=== PATIENT | female | born 1975 | race Hispanic/Latino ===

== ENCOUNTER 2023-04-29 21:16 | Inpatient (IN) | payer OTHER ==
[~2023-04-29] VITALS: Ht 154.9 cm; Wt 82.6 kg
[2023-04-29 22:47] LABS: BASOPHILS # (AUTO) 0.04 K/uL (0.00-0.20); BASOPHILS % (AUTO) 0.5 % (0.0-5.0); EOSINOPHILS # (AUTO) 0.13 K/uL (0.00-0.70); EOSINOPHILS % (AUTO) 1.7 % (0.0-8.0); HEMATOCRIT 36.6 % (36-48); IMMATURE GRANULOCYTE ABSOLUTE 0.01 K/uL (0-1); LYMPHOCYTES # (AUTO) 2.1 K/uL (1.0-4.8); MEAN CORPUSCULAR HEMOGLOBIN 24.5 pg (27.0-33.0); MEAN CORPUSCULAR HGB CONC 31.7 g/dL (32.0-36.0); MEAN CORPUSCULAR VOLUME 77.4 fL (79-99); MONOCYTES # (AUTO) 0.4 K/uL (0.1-1.0); MONOCYTES % (AUTO) 5.1 % (3.0-13.0); NEUTROPHILS # (AUTO) 4.9 K/uL (1.8-7.7); NEUTROPHILS % (AUTO) 64.6 % (40.0-77.0); PLATELET COUNT (AUTO) 284 K/uL (130-400); RED BLOOD CELL COUNT(AUTO) 4.73 MIL/uL (4.00-5.50); RED CELL DISTRIBUTION WIDTH 14.7 % (11.0-15.5); WHITE BLOOD COUNT (AUTO) 7.6 K/uL (4.8-10.8)
[2023-04-29 22:58] LABS: ADD UA MICROSCOPIC YES; APPEARANCE,URINE CLEAR (CLEAR); BILIRUBIN,URINE NEGATIVE (NEGATIVE); COLOR,URINE COLORLESS (YELLOW); GLUCOSE, URINE (UA) >=1000 mg/dL (NEGATIVE); KETONES,URINE NEGATIVE (NEGATIVE); LEUKOCYTE ESTERASE ,URINE 75 Leu/uL (NEGATIVE); NITRATE,URINE NEGATIVE (NEGATIVE); OCCULT BLOOD,URINE NEGATIVE (NEGATIVE); PH,URINE 7.5 (5.0-8.0); PROTEIN,URINE NEGATIVE (NEGATIVE); UROBILINOGEN,URINE 0.2 mg/dL (0.2-1.0)
[2023-04-29 23:02] LABS: INR <= 0.93 (0.85-1.15); MUCUS,URINE RARE LPF (None Seen); PROTHROMBIN TIME 10.4 SEC (9.6-11.6); SQUAMOUS EPITHELIAL CELL,UR FEW /HPF (0-2)
[2023-04-29 23:03] LABS: PARTIAL THROMBOPLASTIN TIME 26.2 SEC (26.3-35.5)
[2023-04-29] MEDS ORDERED: IOHEXOL-350 75 ML VIAL IV ONE (23:05)
[2023-04-29 23:08] LABS: SARS-CoV-2, RNA, NAAT NEGATIVE SARS CoV-2 (NEGATIVE)
[2023-04-29 23:09] LABS: RAPID GROUP A STREP negative (NEGATIVE)
[2023-04-29 23:15] LABS: INFLUENZA TYPE A Negative For Type A (NEGATIVE); INFLUENZA TYPE B Negative For Type B (NEGATIVE)
[2023-04-29 23:18] LABS: ALBUMIN 3.2 g/dL (3.5-5.0); BILIRUBIN,TOTAL 0.4 mg/dL (0.2-1.0); CREATININE 0.7 mg/dL (0.5-1.5); POTASSIUM 3.7 mmol/L (3.5-5.1); TOTAL PROTEIN, SERUM 7.2 g/dL (6.0-8.3)
[2023-04-30] MEDS ORDERED: ONDANSETRON 4MG INJ IV PRN (02:30)
[2023-04-30] MEDS ORDERED: GLUCAGON 1MG KIT 1 MG ML IM PRN (02:30)
[2023-04-30] MEDS ORDERED: DEXTROSE 50%-WATER 50 ML DISP.SYRIN IV PRN (02:30)
[2023-04-30] MEDS: 0.9%NACL 1000ML 1,000 ML IV SCH ×2 (03:46→20:34)
[2023-04-30] MEDS: INSULIN HUMULIN R 100 UNIT/ML 3ML SQ SCH ×4 (07:04→20:37)
[2023-04-30 07:23] LABS: HEMOGLOBIN A1C 12.8 % (4.0-6.0)
[2023-04-30 07:29] LABS: ALBUMIN 3.2 g/dL (3.5-5.0); BILIRUBIN,TOTAL 0.5 mg/dL (0.2-1.0); CREATININE 0.6 mg/dL (0.5-1.5); POTASSIUM 4.1 mmol/L (3.5-5.1); THYROID STIMULATING HORMONE 3.29 uIU/mL (0.36-3.74); TOTAL PROTEIN, SERUM 6.9 g/dL (6.0-8.3)
[2023-04-30] MEDS: ASPIRIN 81 MG EC TAB PO SCH (08:47)
[2023-04-30] MEDS: CLOPIDOGREL 75MG TAB PO SCH (08:47)
[2023-04-30] MEDS: FAMOTIDINE 20MG VIAL IV SCH ×2 (08:47→20:27)
[2023-04-30 08:55] LABS: BASOPHILS # (AUTO) 0.06 K/uL (0.00-0.20); BASOPHILS % (AUTO) 0.8 % (0.0-5.0); EOSINOPHILS % (AUTO) 2.5 % (0.0-8.0); HEMATOCRIT 37.1 % (36-48); IMMATURE GRANULOCYTE ABSOLUTE 0.03 K/uL (0-1); LYMPHOCYTES # (AUTO) 2.2 K/uL (1.0-4.8); LYMPHOCYTES % (AUTO) 27.9 % (21.0-51.0); MEAN CORPUSCULAR HGB CONC 32.1 g/dL (32.0-36.0); MEAN CORPUSCULAR VOLUME 77.9 fL (79-99); MONOCYTES # (AUTO) 0.5 K/uL (0.1-1.0); MONOCYTES % (AUTO) 6.2 % (3.0-13.0); NEUTROPHILS # (AUTO) 4.9 K/uL (1.8-7.7); NEUTROPHILS % (AUTO) 62.2 % (40.0-77.0); PLATELET COUNT (AUTO) 282 K/uL (130-400); RED BLOOD CELL COUNT(AUTO) 4.76 MIL/uL (4.00-5.50); RED CELL DISTRIBUTION WIDTH 14.8 % (11.0-15.5); WHITE BLOOD COUNT (AUTO) 7.9 K/uL (4.8-10.8)
[2023-04-30] MEDS: ENOXAPARIN SODIUM 30 MG/0.3 ML SQ SCH (08:56)
[2023-04-30] MEDS ORDERED: KCL 20 MEQ ERTAB PO PRN (14:30)
[2023-04-30] MEDS ORDERED: POTASSIUM CHLORIDE 20MEQ/100ML 100 ML IV PRN (14:30)
[2023-04-30] MEDS ORDERED: MAGNESIUM 2GM PREMIX 50ML 50 ML IV PRN (14:30)
[2023-04-30] MEDS ORDERED: POTASSIUM CHLORIDE 10% ELIXIR 20 MEQ/15 ML UDCUP PO PRN (14:30)
[2023-04-30 20:00] VITALS: BP 100/63; PULSE 77; RESP 20
[2023-04-30] MEDS ORDERED: INSULIN GLARGINE 100 UNITS/ML 10 ML VIAL SQ SCH (21:00)
[2023-04-30] MEDS ORDERED: ATORVASTATIN 40 MG TABLET PO SCH (21:00)
[2023-05-01] VITALS: BP 125/71; PULSE 61; RESP 18
[2023-05-01 04:00] VITALS: BP 98/56; PULSE 65; RESP 18
[2023-05-01 05:22] LABS: BASOPHILS # (AUTO) 0.04 K/uL (0.00-0.20); BASOPHILS % (AUTO) 0.5 % (0.0-5.0); EOSINOPHILS # (AUTO) 0.17 K/uL (0.00-0.70); EOSINOPHILS % (AUTO) 2.2 % (0.0-8.0); HEMATOCRIT 34.5 % (36-48); IMMATURE GRANULOCYTE ABSOLUTE 0.03 K/uL (0-1); LYMPHOCYTES # (AUTO) 1.9 K/uL (1.0-4.8); LYMPHOCYTES % (AUTO) 24.8 % (21.0-51.0); MEAN CORPUSCULAR HEMOGLOBIN 24.2 pg (27.0-33.0); MEAN CORPUSCULAR HGB CONC 31.6 g/dL (32.0-36.0); MEAN CORPUSCULAR VOLUME 76.5 fL (79-99); MONOCYTES # (AUTO) 0.4 K/uL (0.1-1.0); MONOCYTES % (AUTO) 5.6 % (3.0-13.0); NEUTROPHILS # (AUTO) 5.1 K/uL (1.8-7.7); NEUTROPHILS % (AUTO) 66.5 % (40.0-77.0); PLATELET COUNT (AUTO) 264 K/uL (130-400); RED BLOOD CELL COUNT(AUTO) 4.51 MIL/uL (4.00-5.50); RED CELL DISTRIBUTION WIDTH 14.8 % (11.0-15.5); WHITE BLOOD COUNT (AUTO) 7.7 K/uL (4.8-10.8)
[2023-05-01 05:35] LABS: CREATININE 0.8 mg/dL (0.5-1.5); PHOSPHORUS 3.2 mg/dL (2.5-4.9); POTASSIUM 3.9 mmol/L (3.5-5.1)
[2023-05-01] MEDS: INSULIN HUMULIN R 100 UNIT/ML 3ML SQ SCH ×3 (06:02→15:46)
[2023-05-01 08:00] VITALS: BP 96/54; PULSE 68; RESP 17; O2SAT 96
[2023-05-01] MEDS: CLOPIDOGREL 75MG TAB PO SCH (08:29)
[2023-05-01] MEDS: ASPIRIN 81 MG EC TAB PO SCH (08:29)
[2023-05-01] MEDS: FAMOTIDINE 20MG VIAL IV SCH (08:29)
[2023-05-01] MEDS: ENOXAPARIN SODIUM 30 MG/0.3 ML SQ SCH (08:38)
[2023-05-01] MEDS: 0.9%NACL 1000ML 1,000 ML IV SCH (11:48)
[2023-05-01 12:00] VITALS: BP 92/60; PULSE 66; RESP 16
[2023-05-01] MEDS ORDERED: CLOP-31 PO (13:46)
[2023-05-01] MEDS ORDERED: AEC81 PO (13:46)
[2023-05-01] MEDS ORDERED: CANA300T PO (13:46)
[2023-05-01] MEDS ORDERED: ATOR40TA69 PO (13:46)
[2023-05-01] MEDS ORDERED: METF-891 PO (13:46)
[2023-05-01 16:00] VITALS: BP 112/61; PULSE 72; RESP 18
== END 2023-05-01 17:50 | disposition home or self-care (01) | DRG 69 ==
LOC: EDH 21:16 → EDHIP 21:17 → 4AH 04-30 17:32 → PAH.CVR 05-01 14:37 → 4AH 05-01 14:37
PROVIDERS: ADMIT Internal Medicine; ATTEND Internal Medicine
DX: G45.9 Transient cerebral ischemic attack, unspecified (principal); E66.9 Obesity, unspecified; Z20.822 Contact with and (suspected) exposure to COVID-19; E78.5 Hyperlipidemia, unspecified; E11.9 Type 2 diabetes mellitus without complications; Z79.02 Long term (current) use of antithrombotics/antiplatelets; Z68.34 Body mass index [BMI] 34.0-34.9, adult
CPT/HCPCS: 36415; 70450; 70496; 70498; 70551; 71045; 80048; 80053; 80061; 81001; 82550; 82948; 83036; 83721; 83735; 83880; 84100; 84443; 84484; 85025; 85610; 85730; 87088; 87635; 87804; 87880; 92522; 92610; 93005; 93306; 93356; G0378; J1650; J1815; J3490; Q9967; A4216; A4600

== ENCOUNTER 2023-06-20 00:21 | Emergency (ER) | payer MEDICAID, OTHER ==
[~2023-06-20] VITALS: Ht 154.9 cm; Wt 77.6 kg
[~2023-06-20 00:21] MED LIST: AEC81 PO; ATOR40TA69 PO; CANA300T PO; CLOP-31 PO; METF-891 PO
[2023-06-20 01:25] VITALS: BP 116/59; PULSE 68; RESP 16; O2SAT 100
[2023-06-20] MEDS: HYDROCODONE/ACETAMINOPHEN 5/325 MG TAB PO ONE (01:41)
== END 2023-06-20 02:08 | disposition home or self-care (01) ==
LOC: EDH 00:21
DX: S09.8XXA Other specified injuries of head, initial encounter (principal); E11.9 Type 2 diabetes mellitus without complications; E78.00 Pure hypercholesterolemia, unspecified; Z79.82 Long term (current) use of aspirin; Z79.84 Long term (current) use of oral hypoglycemic drugs; Z79.899 Other long term (current) drug therapy; Z98.890 Other specified postprocedural states; Z90.49 Acquired absence of other specified parts of digestive tract; X58.XXXA Exposure to other specified factors, initial encounter; Y93.89 Activity, other specified; Y92.89 Other specified places as the place of occurrence of the external cause; Y99.8 Other external cause status
CPT/HCPCS: 70450; 72125

== ENCOUNTER 2024-08-09 15:45 | Emergency (ER) | payer SELFPAY ==
[~2024-08-09] VITALS: Ht 152.4 cm; Wt 85.3 kg
[~2024-08-09 15:45] MED LIST changes: +METF-1151 PO; -METF-891 PO
[2024-08-09 16:23] LABS: BASOPHILS # (AUTO) 0.03 K/uL (0.00-0.20); BASOPHILS % (AUTO) 0.3 % (0.0-5.0); EOSINOPHILS # (AUTO) 0.02 K/uL (0.00-0.70); EOSINOPHILS % (AUTO) 0.2 % (0.0-8.0); HEMATOCRIT 39.1 % (36-48); IMMATURE GRANULOCYTE ABSOLUTE 0.03 K/uL (0-1); LYMPHOCYTES # (AUTO) 0.6 K/uL (1.0-4.8); LYMPHOCYTES % (AUTO) 5.7 % (21.0-51.0); MEAN CORPUSCULAR HEMOGLOBIN 25.5 pg (27.0-33.0); MEAN CORPUSCULAR HGB CONC 31.7 g/dL (32.0-36.0); MEAN CORPUSCULAR VOLUME 80.3 fL (79-99); MONOCYTES # (AUTO) 0.4 K/uL (0.1-1.0); MONOCYTES % (AUTO) 3.5 % (3.0-13.0); NEUTROPHILS # (AUTO) 9.1 K/uL (1.8-7.7); PLATELET COUNT (AUTO) 294 K/uL (130-400); RED BLOOD CELL COUNT(AUTO) 4.87 MIL/uL (4.00-5.50); RED CELL DISTRIBUTION WIDTH 13.9 % (11.0-15.5); WHITE BLOOD COUNT (AUTO) 10.1 K/uL (4.8-10.8)
[2024-08-09 16:24] LABS: APPEARANCE,URINE CLEAR (CLEAR); BILIRUBIN,URINE NEGATIVE (NEGATIVE); COLOR,URINE YELLOW (YELLOW); GLUCOSE, URINE (UA) NEGATIVE (NEGATIVE); KETONES,URINE 5 mg/dL (NEGATIVE); LEUKOCYTE ESTERASE ,URINE NEGATIVE Leu/uL (NEGATIVE); NITRATE,URINE NEGATIVE (NEGATIVE); OCCULT BLOOD,URINE NEGATIVE (NEGATIVE); PH,URINE 5.5 (5.0-8.0); PROTEIN,URINE 10 mg/dL (NEGATIVE); UROBILINOGEN,URINE 0.2 mg/dL (0.2-1.0)
[2024-08-09 16:25] LABS: ADD UA MICROSCOPIC YES
--- NOTE | 2024-08-09 16:25 | EKG ---
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
[2024-08-09 16:29] LABS: BACTERIA,URINE RARE /HPF (None Seen); MUCUS,URINE RARE LPF (None Seen); SQUAMOUS EPITHELIAL CELL,UR FEW /HPF (0-2); UNCLASSIFIED CRYSTAL 3 /HPF (None Seen)
[2024-08-09] MEDS: FAMOTIDINE 20MG VIAL IV ONE (16:36)
[2024-08-09] MEDS: 0.9%NACL 1000ML 1,000 ML IV ONE ×2 (16:36→17:35)
[2024-08-09] MEDS: ondanSETRON 4MG INJ IVP ONE (16:36)
[2024-08-09 16:42] LABS: CREATININE 0.8 mg/dL (0.5-1.0); POTASSIUM 4.3 mmol/L (3.5-5.1)
[2024-08-09 16:47] LABS: ALBUMIN 3.7 g/dL (3.5-5.0); BILIRUBIN,DIRECT 0.1 mg/dL (0.0-0.3); BILIRUBIN,TOTAL 0.9 mg/dL (0.2-1.0); MAGNESIUM 1.6 mg/dL (1.80-2.40); TOTAL PROTEIN, SERUM 8.3 g/dL (6.0-8.3)
--- NOTE | 2024-08-09 16:59 | HMCIMG ---
Exam Type: CHEST 1VW Clinical Information: chest wall pain Comparison: None Findings: The lungs are clear of infiltrates. The heart is enlarged. Bony and soft tissue structures of the chest wall are unremarkable. IMPRESSION: Cardiomegaly. Clear lungs.
[2024-08-09] MEDS: ketOROlac 15MG/ML VIAL (15MG/ML) IV ONE (17:46)
[2024-08-09] MEDS: CEFTRIAXONE 2GM VIAL IVPB ONE (19:37)
[2024-08-09] MEDS ORDERED: ONDA-243 PO (20:52)
--- NOTE | 2024-08-09 20:52 | ERN ---
General Chief Complaint: Nausea,Vomiting,Diarrhea Stated Complaint: VOMIT,DIARRHEA,MULTIPLE COMPLAINTS Time Seen by MD: 15:50 Time Seen by Midlevel: 15:50 Source: patient History of Present Illness Initial Comments The patient is a 49-year-old female with a past medical history of uncontrolled diabetes and hypertension presenting to the emergency department for evaluation of nausea/vomiting/diarrhea that started yesterday at approximately six p.m.. Associated symptoms include generalized body weakness. Today she reported with increased diarrhea so she decided to report to the ER for further evaluation. A dditionally she states she had a gate fall on her chest yesterday and began to feel chest wall pain rated 8/10. Denies any other symptoms Allergies: Coded Allergies: No Known Allergies (Unverified Allergy, Unknown, 04/29/23) Home Meds Active Scripts Ondansetron (Ondansetron Odt) 4 Mg Tab.rapdis, 4 MG PO BID for 7 Days, #14 TAB Prov:MITRA VICK 08/09/24 Canagliflozin (Invokana) 300 Mg Tablet, 300 MG PO DAILY for 30 Days, #30 TAB Prov:HAMIDA RICE MD 05/01/23 Metformin HCl (Metformin HCl ER) 1,000 Mg [id number], 1000 MG PO BID, #60 TAB Prov:HAMIDA RICE MD 05/01/23 Clopidogrel Bisulfate (Plavix) 75 Mg Tablet, 75 MG PO DAILY, #30 TAB 0 Refills Prov:HAMIDA RICE MD 05/01/23 Atorvastatin Calcium (LIPITOR) 40 Mg Tablet, 40 MG PO HS, #30 TAB 0 Refills Prov:HAMIDA RICE MD 05/01/23 Aspirin (ASPIRIN 81 MG ECTAB) 81 Mg Ectab, 81 MG PO DAILY, #30 TAB.EC 0 Refills Prov:HAMIDA RICE MD 05/01/23 Past Medical History Past Medical History: Diabetes-Type II, High Cholesterol Medical History Other: HX OF VERTIGO Past Surgical History: Cholecystectomy, Surgical History Other: HERNIA REPAIR Family History Family History: Negative Social History Social History: Negative, Lives with family ROS Dictation CONSTITUTIONAL: Negative except for HPI HEAD/FACE: Negative except for HPI EENT: Negative except for HPI RESPIRATORY: Negative except for HPI GASTROINTESTINAL/ABDOMINAL: Negative except for HPI GENITOURINARY: Negative except for HPI MUSCULOSKELETAL: Negative except for HPI INTEGUMENTARY: Negative except for HPI NEUROLOGICAL/PSYCH: Negative except for HPI HEMATOLOGIC/LYMPHATIC: Negative except for HPI All Systems Negative, Except as noted above. 13 point review of systems assessed and all negative except for above. Physical Exam Physical Exam Dictation Vital Signs reviewed General Appearance: Alert, oriented x 3, no acute distress, well developed, nourished. Head and Face: non-traumatic. Eyes: PERRL, pink conjunctivas, eyelid no trauma, anterior chamber with arcus senilis. Ears: Pinnas intact and no signs of trauma or erythema ear canals clear and no discharge TM no erythema Nose: No discharge, no bleeding. Oropharynx: Mouth normal, tongue pink, pharynx clear,no erythema, tonsils no exudates, no abscesses noted, mucous membrane moist Neck: Supple, non-tender, no thyromegaly, no masses, no JVD, no bruits Breast:Deferred Chest:No tenderness, no crepitus, no paradoxical movement, no retractions Lungs:Clear, well-ventilated, symmetric, no rales, no wheezing, no rhonchi, no stridor, good breath sounds bilaterally Heart: Regular rate, regular rhythm, no murmur, no gallops Vascular: no peripheral edema, Abdomen: Soft, positive bowel sounds, nondistended, no guarding, nontender, no rebound, no masses no hepatomegaly, no splenomegaly, no Wilkins's sign, no hernias. Rectal: Deferred Genital: Deferred Neurological: Normal speech, motor function intact, sensory function intact Musculoskeletal: Neck nontender, full range of motion, back nontender, full range of motion, Extremities: nontender, full range of motion Skin: Color pink, dry, no turgor, no rash, no lacerations, no abrasions, no contusions. Lymphatic: Deferred Results Laboratory and Microbiology Lab and Micro Result Laboratory Tests Test 08/09/24 16:12 08/09/24 18:50 08/09/24 20:18 White Blood Count 10.1 K/uL (4.8-10.8) Red Blood Count 4.87 MIL/uL (4.00-5.50) Hemoglobin 12.4 g/dL (12.0-16.0) Hematocrit 39.1 % (36-48) Mean Corpuscular Volume 80.3 fL (79-99) Mean Corpuscular Hemoglobin 25.5 pg (27.0-33.0) L Mean Corpuscular Hemoglobin Concent 31.7 g/dL (32.0-36.0) L Red Cell Distribution Width 13.9 % (11.0-15.5) Platelet Count 294 K/uL (130-400) Mean Platelet Volume 10.4 fL (7.5-10.5) Immature Granulocyte % (Auto) 0.3 % (0-1) Neutrophils (%) (Auto) 90.0 % (40.0-77.0) H Lymphocytes (%) (Auto) 5.7 % (21.0-51.0) L Monocytes (%) (Auto) 3.5 % (3.0-13.0) Eosinophils (%) (Auto) 0.2 % (0.0-8.0) Basophils (%) (Auto) 0.3 % (0.0-5.0) Neutrophils # (Auto) 9.1 K/uL (1.8-7.7) H Lymphocytes # (Auto) 0.6 K/uL (1.0-4.8) L Monocytes # (Auto) 0.4 K/uL (0.1-1.0) Eosinophils # (Auto) 0.02 K/uL (0.00-0.70) Basophils # (Auto) 0.03 K/uL (0.00-0.20) Absolute Immature Granulocyte (auto 0.03 K/uL (0-1) Nucleated Red Blood Cells 0.0 % (0.0-0.19) White Cell Morphology Comment See comments Urine Color YELLOW (YELLOW) Urine Appearance CLEAR (CLEAR) Urine pH 5.5 (5.0-8.0) Urine Specific [place] 1.031 (1.001-1.031) Urine Protein 10 mg/dL (NEGATIVE) H Urine Glucose (UA) NEGATIVE mg/dL (NEGATIVE) Urine Ketones 5 mg/dL (NEGATIVE) H Urine Occult Blood NEGATIVE (NEGATIVE) Urine Nitrate NEGATIVE (NEGATIVE) Urine Bilirubin NEGATIVE mg/dL (NEGATIVE) Urine Urobilinogen 0.2 mg/dL (0.2-1.0) Urine Leukocyte Esterase NEGATIVE Jacob/uL Urine RBC 2-5 /HPF (0-1) H Urine WBC 2-5 /HPF (0-1) H Urine Squamous Epithelial Cells FEW /HPF (0-2) Urine Other Crystals (Auto) 3 /HPF (None Seen) Urine Bacteria RARE /HPF (None Seen) Sodium Level 137 mmol/L (136-145) Potassium Level 4.3 mmol/L (3.5-5.1) Chloride Level 102 mmol/L (101-111) Carbon Dioxide Level 24 mmol/L (21-32) Blood Urea Nitrogen 17 mg/dL (7-18) Creatinine 0.8 mg/dL (0.5-1.0) Glomerular Filtration Rate Calc 90 mL/min (>90) Random Glucose 181 mg/dL (70-105) H Lactic Acid Level 3.2 mmol/L (0.8-2.5) H 2.5 mmol/L (0.8-2.5) 1.9 mmol/L (0.8-2.5) Total Calcium 8.5 mg/dL (8.5-10.1) Magnesium Level 1.60 mg/dL (1.80-2.40) L Total Bilirubin 0.9 mg/dL (0.2-1.0) Direct Bilirubin 0.1 mg/dL (0.0-0.3) Aspartate Amino Transf (AST/SGOT) 36 U/L (10-37) Alanine Aminotransferase (ALT/SGPT) 32 U/L (12-78) Alkaline Phosphatase 123 U/L (50-136) Troponin I High Sensitivity < 4 ng/L (4-50) L Total Protein 8.3 g/dL (6.0-8.3) Albumin 3.7 g/dL (3.5-5.0) Lipase 39 U/L (16-77) Labs Reviewed?: Yes MDM MDM: 49-year-old female with a past medical history of uncontrolled diabetes presenting to the emergency department with nausea and vomiting and diarrhea. She does have a history of DKA in his concerned that she might be in DKA. On arrival with the patient is febrile but is nontoxic appearing. Otherwise her vital signs are stable. Her CBC shows no leukocytosis, no anemia, no thrombocytopenia. Her chemistries are stable. Anion gap is normal. Blood glucose is 181. Patient is not in DKA. However, the patient has an isolated lactic acidosis. The patient was given 2 L of IV fluid and given 2 g of ceftriaxone. Repeat lactic acid is 1.9. We will discharged home Differential diagnosis: Dehydration, DKA, chest wall contusion, gastroenteritis There are no social concerns with this patient. Prescription drug management Prescriptions will include: Zofran Medical management and examination interpretation discussions were had by me with other qualified healthcare professionals as indicated for the patient's care. ED Course Orders Procedure Category Date Status Time Cbc With Differential LAB 08/09/24 Complete 16:12 Basic Metabolic Panel LAB 08/09/24 Complete 16:12 12 Lead Ekg Tracing- EKG 08/09/24 Complete Technical 16:12 Lactic Acid LAB 08/09/24 Complete 16:12 Magnesium LAB 08/09/24 Complete 16:12 Urinalysis Profile LAB 08/09/24 Complete 16:12 Chest 1vw RAD 08/09/24 Resulted 16:12 0.9%Nacl 1000ml (Ns PHA 08/09/24 Complete 1000ml) 16:30 Ondansetron 4mg Inj PHA 08/09/24 Complete (Zofran 4mg Inj) 16:30 Famotidine 20mg Vial PHA 08/09/24 Complete (Pepcid 20mg Vial) 16:30 Lipase LAB 08/09/24 Complete 16:12 Hepatic Function Panel LAB 08/09/24 Complete 16:12 Troponin I High LAB 08/09/24 Complete Sensitivity 16:12 0.9%Nacl 1000ml (Ns PHA 08/09/24 Complete 1000ml) 17:30 Ketorolac PHA 08/09/24 Complete Tromethamine 15mg/Ml 18:00 Lactic Acid LAB 08/09/24 Complete 18:23 Ceftriaxone 2gm Vial PHA 08/09/24 Complete (Rocephin 2gm Inj) 20:00 Lactic Acid LAB 08/09/24 Complete 20:09 Current Medications Medications (Trade) Dose Ordered Sig/Poppy Route PRN Reason Start Time Stop Time Status Last Admin Dose Admin Ceftriaxone Sodium (Rocephin 2gm Inj) 2 gm ONCE ONCE IVPB 08/09/24 20:00 08/09/24 20:01 DC 08/09/24 19:37 Famotidine (Pepcid 20mg Vial) 20 mg ONCE ONCE IV 08/09/24 16:30 08/09/24 16:31 DC 08/09/24 16:36 Ketorolac Tromethamine (toRADol) 15 mg ONCE ONCE IV 08/09/24 18:00 08/09/24 18:01 DC 08/09/24 17:46 Ondansetron HCl (zoFRAN 4MG INJ) 4 mg ONCE ONCE IVP 08/09/24 16:30 08/09/24 16:31 DC 08/09/24 16:36 Sodium Chloride 1,000 ml @ 0 mls/hr ONCE ONCE IV 08/09/24 16:30 08/09/24 16:31 DC 08/09/24 16:36 Sodium Chloride 1,000 ml @ 0 mls/hr ONCE ONCE IV 08/09/24 17:30 08/09/24 17:35 DC 08/09/24 17:35 Vital Signs Date Time Temp Pulse Resp B/P (MAP) Pulse Ox O2 Delivery O2 Flow Rate FiO2 08/09/24 20:45 99.7 94 20 116/65 100 Room Air* 0 21 08/09/24 19:40 99.7 91 20 120/70 97 Room Air* 0 08/09/24 18:58 99.1 92 20 130/79 100 Room Air* 0 21 08/09/24 17:45 99.1 92 20 155/92 99 Room Air* 0 08/09/24 17:15 99.5 98 20 133/77 100 Room Air* 0 08/09/24 16:27 104 20 105/67 100 Room Air* 0 08/09/24 15:47 101.8 97 22 118/75 100 Room Air 0 DX & DISP Disposition: Discharge Departure Impression: Primary Impression: Dehydration Additional Impressions: Hyperglycemia, Chest wall contusion, Gastroenteritis Condition: Stable Scripts Ondansetron (Ondansetron Odt) 4 Mg Tab.rapdis 4 MG PO BID for 7 Days, #14 TAB Prov: MITRA VICK 08/09/24 Referrals: NIMISHA GARNER MD (PCP) I have reviewed the case, and I agree with, Diagnosis and Plan I performed the substantive portion of the visit. I have reviewed and personally made and approve the management plan that is documented in the note by myself or the CHRIS. I acknowledge for responsibility for the patient's management plan. MITRA VICK August 09, 2024 20:52
[2024-08-09 21:05] VITALS: BP 118/67; PULSE 95; RESP 20; TEMP 99.5; O2SAT 100
== END 2024-08-09 21:05 | disposition home or self-care (01) ==
LOC: EDH 15:45
DX: S20.219A Contusion of unspecified front wall of thorax, initial encounter (principal); E86.0 Dehydration; E11.65 Type 2 diabetes mellitus with hyperglycemia; K52.9 Noninfective gastroenteritis and colitis, unspecified; E78.00 Pure hypercholesterolemia, unspecified; Z79.02 Long term (current) use of antithrombotics/antiplatelets; Z79.82 Long term (current) use of aspirin; Z79.84 Long term (current) use of oral hypoglycemic drugs; Z90.49 Acquired absence of other specified parts of digestive tract; Z98.890 Other specified postprocedural states; W18.39XA Other fall on same level, initial encounter; Y93.89 Activity, other specified; Y92.89 Other specified places as the place of occurrence of the external cause; Y99.8 Other external cause status
CPT/HCPCS: 99285; 96374; 96375; 71045; 96361; 80076; 83735; 84484; 80048; 83690; 85025; 81001; 36415; 93005; 83605 ×3; J1885; J3490; J7030 ×2; J0696; J2405